=== PATIENT | female | born 1960 | race Two or more races ===

== ENCOUNTER 2017-11-14 10:06 | Outpatient (CLI) | payer BC ==
--- NOTE | 2017-11-14 14:19 | Diagnostic Imaging Report ---
Indication: Cough Technique: 2 views of the chest Comparison: None Findings: Lungs and pleural spaces are clear. The heart size is normal. The bones are unremarkable. There is minimal degenerative spondylosis. Impression: Negative
== END 2017-11-14 12:06 | disposition home or self-care (01) ==
LOC: RAD 10:06
DX: R07.9 Chest pain, unspecified (principal); M47.9 Spondylosis, unspecified
CPT/HCPCS: 71046